=== PATIENT | male | born 1930 | race Caucasian/White ===

== ENCOUNTER 2016-06-23 15:03 | Inpatient (IN) | payer OTHER ==
[~2016-06-23] VITALS: Ht 172.7 cm; Wt 101.0 kg
[~2016-06-23 15:03] MED LIST: ALBUTEROL2.5 MG/3 M IH; ARICEPT10 MG PO; ATORVASTATIN CA20 MG PO; AUGMENTIN875 MG PO; CARBIDOPA/LEVO1 EACH PO; CARDIZEM30 MG PO; CARDIZEM60 MG PO; CLEOCIN300 MG PO; CLINDAMYCIN HC300 MG PO; CYCLOBENZAPRINE5 MG PO; DETROL LA4 MG PO; DONEPEZIL HCL10 MG PO; DURAGESIC25 MCG TD; FENTANYL1 EAC5 TD; FLUOXETINE HCL40 MG PO; GABAPENTIN800 MG PO; KEFLEX500 MG PO; KETOCONAZOLE60 GM TP; LEVAQUIN500 MG PO; LEVOTHYROXINE112 MCG PO; LIPITOR20 MG PO; NEURONTIN600 MG PO; OXYCODONE-APAP1 EAC6 PO; PERCOCET 5/31 TABLET PO; PROAIR HFA8.5 GM IH; PROBIOTIC250 MG PO; PROZAC PO; PROZAC40 MG PO; QUETIAPINE FUMA25 MG PO; QUETIAPINE FUMARATE PO; SEROQUEL PO; SEROQUEL12.5 MG PO; SINEMET 25-1001 EACH PO; SINEMET CR 50-1 EACH PO; SPIRIVA1 INHALATI IH; SYMBICORT60 INHALAT IH; SYNTHROID112 MCG PO; TOLTERODINE TART4 MG PO; TRAMADOL HCL50 MG PO
[2016-06-23 16:08] LABS: EOSINOPHIL (%) 4.1 % (0-5); EOSINOPHIL COUNT 0.3 K/uL (0-0.3); HEMATOCRIT 39.9 % (38.0-50.0); IMMATURE GRANULOCYTE (%) 0.6 % (0.0-0.7); IMMATURE GRANULOCYTE COUNT 0.4 K/uL; LYMPHOCYTE COUNT 1.1 K/uL (1.0-2.8); MCHC 32.8 G/DL (30.0-36.0); MCV 94.5 FL (86-99); MEAN PLAT.VOLUME 9.1 uM^3 (9.0-12.4); MONOCYTE COUNT 0.6 K/uL (0-0.8); NEUTROPHIL (%) 71.7 % (45-76); PLATELET COUNT 184 K/uL (156-360); RBC DIS.WIDTH-CV 14.1 % (11.8-14.6); RBC DIS.WIDTH-SD 46.1 % (39-53); RED BLOOD COUNT 4.22 M/uL (4.00-5.50); WHITE BLOOD COUNT 6.9 K/uL (4.1-10.2)
[2016-06-23 16:26] LABS: CHLORIDE 106 mEq/L (99-109); POTASSIUM 4.3 mEq/L (3.7-5.4); SODIUM 139 mEq/L (136-147)
[2016-06-23 16:28] LABS: GLUCOSE 105 mg/dL (70-99)
[2016-06-23 16:29] LABS: ANION GAP 5 MEQ/L (2-14)
[2016-06-23 16:30] LABS: TOTAL BILIRUBIN 0.5 mg/dL (0.0-1.0)
[2016-06-23 16:31] LABS: ALKALINE PHOSPHATASE 80 IU/L (3-129)
[2016-06-23 16:32] LABS: GFR ESTIMATE (CALCULATED) > 59 mL/min/
[2016-06-23 16:33] LABS: UREA NITROGEN (BUN) 15 mg/dL (9-23)
[2016-06-23] MEDS ORDERED: CLEOCIN300 MG PO (19:10)
[2016-06-23 19:56] VITALS: BP 149/72
[2016-06-24 00:59] VITALS: BP 133/61
[2016-06-24 04:45] VITALS: BP 132/71
[2016-06-24 07:21] LABS: HEMATOCRIT 39.1 % (38.0-50.0); MCH 31.7 PG (29.0-34.0); MCHC 33.2 G/DL (30.0-36.0); MCV 95.4 FL (86-99); MEAN PLAT.VOLUME 9.7 uM^3 (9.0-12.4); PLATELET COUNT 157 K/uL (156-360); RBC DIS.WIDTH-CV 14.2 % (11.8-14.6); RBC DIS.WIDTH-SD 49.6 % (39-53); WHITE BLOOD COUNT 4.9 K/uL (4.1-10.2)
[2016-06-24 07:25] VITALS: BP 133/69
[2016-06-24 07:45] LABS: ANION GAP 7 MEQ/L (2-14); CHLORIDE 108 MEQ/L (99-109); GFR ESTIMATE (CALCULATED) > 59 mL/min/; GLUCOSE 85 mg/dL (70-99); POTASSIUM 4.2 MEQ/L (3.7-5.4); SAMPLE HEMOLYSIS CHECK 0; SAMPLE ICTERIC CHECK 0; SAMPLE LIPEMIA CHECK 0; SODIUM 144 MEQ/L (136-147); UREA NITROGEN (BUN) 11 mg/dL (9-23)
[2016-06-24 12:11] VITALS: BP 130/62
[2016-06-24 15:55] VITALS: BP 129/72
[2016-06-24 20:00] VITALS: BP 126/67
[2016-06-25] VITALS: BP 130/69
[2016-06-25 04:00] VITALS: BP 131/62
[2016-06-25 05:53] LABS: EOSINOPHIL (%) 3.1 % (0-5); EOSINOPHIL COUNT 0.2 K/uL (0-0.3); IMMATURE GRANULOCYTE (%) 0.3 % (0.0-0.7); LYMPHOCYTE COUNT 0.8 K/uL (1.0-2.8); MCH 31.8 PG (29.0-34.0); MCHC 33.4 G/DL (30.0-36.0); MEAN PLAT.VOLUME 9.4 uM^3 (9.0-12.4); MONOCYTE (%) 8.5 % (3-12); MONOCYTE COUNT 0.5 K/uL (0-0.8); NEUTROPHIL (%) 73.1 % (45-76); NEUTROPHIL COUNT 4.2 K/uL (1.8-6.4); PLATELET COUNT 155 K/uL (156-360); RBC DIS.WIDTH-CV 14.2 % (11.8-14.6); WHITE BLOOD COUNT 5.8 K/uL (4.1-10.2)
[2016-06-25 06:11] LABS: ANION GAP 9 MEQ/L (2-14); CHLORIDE 110 MEQ/L (99-109); GFR ESTIMATE (CALCULATED) > 59 mL/min/; GLUCOSE 93 mg/dL (70-99); POTASSIUM 4.2 MEQ/L (3.7-5.4); SAMPLE HEMOLYSIS CHECK 0; SAMPLE ICTERIC CHECK 0; SAMPLE LIPEMIA CHECK 0; SODIUM 145 MEQ/L (136-147); UREA NITROGEN (BUN) 11 mg/dL (9-23)
[2016-06-25 07:47] VITALS: BP 139/67
[2016-06-25 12:16] VITALS: BP 151/85
[2016-06-25 15:30] VITALS: BP 128/65
[2016-06-25 19:54] VITALS: BP 125/68
[2016-06-26] VITALS: BP 132/82
[2016-06-26 04:00] VITALS: BP 141/65
[2016-06-26 07:39] VITALS: BP 138/73
[2016-06-26] MEDS ORDERED: KEFLEX500 MG PO (10:43)
[2016-06-26] MEDS ORDERED: FUTURO RESTORI1 EACH MC (10:45)
== END 2016-06-26 11:53 | disposition home health service (06) | DRG 603 ==
LOC: EME 15:03 → EXP 15:03 → EDOF 17:22 → 2EASTP 19:39
PROVIDERS: Internal Medicine; Nurse Practitioner Family
DX: L03.115 Cellulitis of right lower limb (principal); G20 Parkinson's disease; J44.9 Chronic obstructive pulmonary disease, unspecified; I10 Essential (primary) hypertension; E78.5 Hyperlipidemia, unspecified; E03.9 Hypothyroidism, unspecified; F03.90 Unspecified dementia, unspecified severity, without behavioral disturbance, psychotic disturbance, mood disturbance, and anxiety; I87.8 Other specified disorders of veins; G62.9 Polyneuropathy, unspecified; F31.9 Bipolar disorder, unspecified; H54.41 Blindness, right eye, normal vision left eye; L21.9 Seborrheic dermatitis, unspecified; Z99.81 Dependence on supplemental oxygen; Z85.46 Personal history of malignant neoplasm of prostate; Z88.2 Allergy status to sulfonamides; Z87.891 Personal history of nicotine dependence
CPT/HCPCS: 80048; 80053; 83605; 85025; 85027; 87040; 93971; 94640; 94640 76; 94799; 99202; 99281; 99285; J1650; J3370; J7030

== ENCOUNTER 2016-08-14 17:31 | Emergency (ER) | payer OTHER ==
[~2016-08-14] VITALS: Ht 170.2 cm; Wt 99.0 kg
[~2016-08-14 17:31] MED LIST changes: +FUTURO RESTORI1 EACH MC
[2016-08-14] MEDS ORDERED: KEFLEX500 MG PO (22:24)
[2016-08-15 02:14] VITALS: BP 160/88
== END 2016-08-14 22:32 | disposition home or self-care (01) ==
LOC: EME 17:31
DX: S09.90XA Unspecified injury of head, initial encounter (principal); S01.81XA Laceration without foreign body of other part of head, initial encounter; M50.30 Other cervical disc degeneration, unspecified cervical region; W01.198A Fall on same level from slipping, tripping and stumbling with subsequent striking against other object, initial encounter; I10 Essential (primary) hypertension; G89.29 Other chronic pain; Z85.46 Personal history of malignant neoplasm of prostate; Z99.81 Dependence on supplemental oxygen; Z88.2 Allergy status to sulfonamides
CPT/HCPCS: 70450; 72125; 99281; 99284

== ENCOUNTER 2016-10-16 16:57 | Observation (INO) | payer OTHER ==
[~2016-10-16] VITALS: Ht 167.6 cm; Wt 90.6 kg
[2016-10-16 17:40] LABS: EOSINOPHIL COUNT 0.2 K/uL (0-0.3); HEMATOCRIT 41.6 % (38.0-50.0); IMMATURE GRANULOCYTE (%) 0.6 % (0.0-0.7); INSTRUMENT ABS NEUTROPHIL CT 5.6 K/uL; LYMPHOCYTE COUNT 0.8 K/uL (1.0-2.8); MCH 30.3 PG (29.0-34.0); MCHC 32.2 G/DL (30.0-36.0); MCV 94.1 FL (86-99); MONOCYTE (%) 8.7 % (3-12); MONOCYTE COUNT 0.6 K/uL (0-0.8); NEUTROPHIL (%) 76.7 % (45-76); NEUTROPHIL COUNT 5.6 K/uL (1.8-6.4); PLATELET COUNT 193 K/uL (156-360); RBC DIS.WIDTH-CV 14.9 % (11.8-14.6); RBC DIS.WIDTH-SD 51.4 % (39-53); RED BLOOD COUNT 4.42 M/uL (4.00-5.50); WHITE BLOOD COUNT 7.2 K/uL (4.1-10.2)
[2016-10-16 17:46] LABS: CHLORIDE 105 mEq/L (99-109); POTASSIUM 4.9 mEq/L (3.7-5.4); SODIUM 140 mEq/L (136-147)
[2016-10-16 17:47] LABS: GLUCOSE 95 mg/dL (70-99)
[2016-10-16 17:49] LABS: ANION GAP 5 MEQ/L (2-14)
[2016-10-16 17:51] LABS: GFR ESTIMATE (CALCULATED) > 59 mL/min/
[2016-10-16 17:52] LABS: UREA NITROGEN (BUN) 14 mg/dL (9-23)
[2016-10-16 17:57] LABS: TROP-I INTERPRETATION NEGATIVE; TROPONIN-I < 0.01 ng/mL (0.0-0.30)
[2016-10-16 19:07] LABS: D-DIMER ELISA 0.43 mg/L FEU (< 0.57)
[2016-10-16] MEDS ORDERED: DETROL LA4 MG PO (20:09)
[2016-10-16 22:33] VITALS: BP 92/60
[2016-10-17 00:27] VITALS: BP 89/53
[2016-10-17 01:35] LABS: TROP-I INTERPRETATION NEGATIVE; TROPONIN-I < 0.01 ng/mL (0.0-0.30)
[2016-10-17 04:00] VITALS: BP 113/68
[2016-10-17 06:06] LABS: TROP-I INTERPRETATION NEGATIVE; TROPONIN-I < 0.01 ng/mL (0.0-0.30)
[2016-10-17 06:49] VITALS: BP 134/59
[2016-10-17 11:40] VITALS: BP 98/55
[2016-10-17 11:45] VITALS: BP 128/60
[2016-10-17 12:47] LABS: ADD MIUA? YES; BILIRUBIN NEGATIVE; BLOOD SMALL; COLOR YELLOW ((YELLOW)); GLUCOSE (STRIP) NEGATIVE; KETONES NEGATIVE; LEUKOCYTES NEGATIVE; NITRITE NEGATIVE; PROTEIN (STRIP) NEGATIVE; SPECIFIC GRAVITY 1.033 (1.000-1.030); UROBILINOGEN 0.2 MG/DL (0.2-1.0)
[2016-10-17 12:49] LABS: BACTERIA NONE SEEN /HPF; EPITHELIAL CELLS NONE SEEN /HPF; MUCUS NONE SEEN /LPF; RED BLOOD CELLS 0-5 /HPF (0-5); WHITE BLOOD CELLS 0-5 /HPF (0-5)
[2016-10-17] MEDS ORDERED: ASPIR-LOW81 MG PO (13:03)
[2016-10-17 15:35] VITALS: BP 99/58
[2016-10-17] MEDS ORDERED: PRAVASTATIN SOD80 MG PO (15:35)
== END 2016-10-17 16:59 | disposition home health service (06) ==
LOC: EME 16:57 → EDOF 20:58 → 5WEST 22:10
PROVIDERS: Emergency Medicine; Hospitalist; Nurse Practitioner Adult Health
DX: R07.89 Other chest pain (principal); I48.2 Chronic atrial fibrillation; J44.9 Chronic obstructive pulmonary disease, unspecified; E78.5 Hyperlipidemia, unspecified; I10 Essential (primary) hypertension; Z85.46 Personal history of malignant neoplasm of prostate; Z99.81 Dependence on supplemental oxygen; E03.9 Hypothyroidism, unspecified; G20 Parkinson's disease; I73.9 Peripheral vascular disease, unspecified; R09.02 Hypoxemia; I87.8 Other specified disorders of veins; I25.10 Atherosclerotic heart disease of native coronary artery without angina pectoris; Z87.891 Personal history of nicotine dependence
CPT/HCPCS: 70450; 71010; 71275; 80048; 81003; 83880; 84484; 85025; 85379; 93005; 93306; 94640; 94640 76; 94799; 99281; 99284; G0378; G8978 GP CK; G8979 CJ; G8980 GP CK; J1644

== ENCOUNTER 2016-11-14 18:03 | Emergency (ER) | payer OTHER ==
[~2016-11-14] VITALS: Ht 162.6 cm; Wt 97.2 kg
[~2016-11-14 18:03] MED LIST changes: +ASPIR-LOW81 MG PO; +PRAVASTATIN SOD80 MG PO
[2016-11-14] MEDS ORDERED: ZOFRAN ODT4 MG PO (19:45)
[2016-11-14 19:59] VITALS: BP 157/80
== END 2016-11-14 20:00 | disposition home or self-care (01) ==
LOC: EME 18:03
DX: S06.5X0A Traumatic subdural hemorrhage without loss of consciousness, initial encounter (principal); S06.0X0A Concussion without loss of consciousness, initial encounter; S00.81XA Abrasion of other part of head, initial encounter; G20 Parkinson's disease; I10 Essential (primary) hypertension; I73.9 Peripheral vascular disease, unspecified; J44.9 Chronic obstructive pulmonary disease, unspecified; E78.5 Hyperlipidemia, unspecified; E03.9 Hypothyroidism, unspecified; F32.9 Major depressive disorder, single episode, unspecified; Z87.891 Personal history of nicotine dependence; Z91.81 History of falling; W07.XXXA Fall from chair, initial encounter
CPT/HCPCS: 70450; 72125; 99281; 99284